=== PATIENT | male | born 1945 | race Caucasian/White ===

== ENCOUNTER 2023-10-02 08:44 | Day surgery (SDC) | payer MEDICARE, SELFPAY ==
--- NOTE | 2023-10-02 | PATH_ITS ---
[facility] Accession Number: [id number] No. of containers..04 Tissue . 01 Material submitted: . PART A: small bowel - SMALL BOWEL PART B: gastrointestinal site - GASTRIC PART C: ileum - ILEUM PART D: colon - RANDOM COLON . 01 Diagnosis: Part A: SMALL BOWEL: Small bowel mucosa with no diagnostic alterations. No active inflammation and no evidence of celiac disease. . Part B: GASTRIC: Gastric mucosa with mild chronic inflammation. No Helicobacter organisms identified. No intestinal metaplasia, dysplasia, or malignancy identified. . Part C: ILEUM: Ileal mucosa with no diagnostic alterations. No active inflammation, granulomas, or dysplasia identified. . Part D: RANDOM COLON: Colonic mucosa with no diagnostic alterations. No active inflammation, granulomas, dysplasia, or malignancy identified. No evidence of colitis. [facility] 10/06/2023 1318 Local . 01 Electronically signed: . Kristian Garcia MD, Pathologist NPI- [id number] . 01 Gross description: . Part A: SMALL BOWEL: Received in formalin are 3 fragment(s) of moran, soft tissue measuring 0.1 x 0.1 x 0.1 cm to 0.3 x 0.2 x 0.2 cm submitted entirely in 1 cassette(s) . Part B: GASTRIC: Received in formalin is 1 fragment(s) of moran, soft tissue measuring 0.4 x 0.2 x 0.2 cm submitted entirely in 1 cassette(s) . Part C: ILEUM: Received in formalin is 1 fragment(s) of moran, soft tissue measuring 0.3 x 0.3 x 0.2 cm submitted entirely in 1 cassette(s) . Part D: RANDOM COLON: Received in formalin are multiple fragment(s) of moran, soft tissue measuring 0.1 x 0.1 x 0.1 cm to 0.3 x 0.2 x 0.2 cm submitted entirely in 1 cassette(s) /TRACY 10/06/2023 1318 Local . 01 Microscopic: . Part B: GASTRIC: An immunohistochemical stain was performed to evaluate for Helicobacter organisms and is negative. The control stains appropriately. * This test was developed and its performance characteristics determined by [facility]. It has not been cleared or approved by the U.S. Food and Drug Administration. The FDA has determined that such clearance or approval is not necessary. This test is used for clinical purposes. It should not be regarded as investigational or for research. . 01 Pathologist provided ICD-10: K29.50, R19.7 . 01 CPT . 134914, 799553, 286649, 014519, N31687 Specimen Comment: A courtesy copy of this report has been sent to [phone] Performed at: 01 [facility] [address] [place] [address] [address] [facility], [place], [place] [id number] MD Kristian Garcia MD Phone: [phone]
[2023-10-02 09:21] VITALS: BP 151/85; PULSE 62; RESP 18; TEMP 36.8; O2SAT 98
[2023-10-02] MEDS: LACTATED RINGERS 1,000 ML 42 ML IV (09:31)
--- NOTE | 2023-10-02 09:39 | PM.PREOP ---
Pre-operative Note Interval Note History & Physical reviewed/Exam performed by Physician: Yes Changes to H&P: No ASA Class (for procedural sedation): III
--- NOTE | 2023-10-02 09:39 | PM.OP.EC ---
Operative Date/Time/Diagnoses Date of procedure: 10/02/23 Pre-op diagnosis: See indication and findings Procedure & Clinicians Study performed: EGD and colonoscopy Indications: Persistent and recurrent diarrhea and history of duodenal stricture Surgeon: Chandni Valle Procedure Notes Procedure in detail: After informed consent was obtained the patient was placed in left lateral decubitus position. The video upper scope was placed into the oropharynx and with the patient's help swallowed into the esophagus. The esophagus stomach and duodenum were carefully examined. I was unable to make it through the pylorus initially and therefore the pediatric colonoscope was substituted and the procedure was completed. On withdrawal, retroflexed view the GE junction was performed. The scope was removed. The patient tolerated procedure well. Colonoscope was then substituted and the patient turned. This introduced in the rectum slowly advanced cecum. Preparation was good. On slow withdrawal mucosa was carefully examined. The scope was removed. The patient tolerated procedure well. Blood loss none Complications none Sedation mac Findings EGD 1. Normal esophagus 2. Stomach with large amount of retained bilious fluid, nothing solid. Approximately 180-200 cc were suctioned. 3. Moderate to severe gastritis with a few hematin flecks present. Biopsies taken 4. Wide open pylorus and subsequent surgical findings of Billroth-I anastomosis. Scope was passed at least 15 cm past the pylorus no recurrent stricture seen. Biopsies taken Colonoscopy 1. Terminal ileum evaluated along within normal IC valve. Completely normal mucosa. Biopsies taken 2. Otherwise normal colonoscopy the with a large amount of retained fluid. Biopsies taken Will be in touch with Jeromy regarding all of his biopsies. We may need to consider another small-bowel study given the large amount of gastric retention that he had.
[2023-10-02 10:49] VITALS: BP 109/53; PULSE 55; RESP 12; O2SAT 92
[2023-10-02 10:54] VITALS: BP 106/56; PULSE 48; RESP 12; O2SAT 94
[2023-10-02 10:59] VITALS: BP 119/66; PULSE 47; RESP 14; O2SAT 95
[2023-10-02 11:05] VITALS: BP 134/72; PULSE 46; RESP 13; O2SAT 96
[2023-10-02 11:20] VITALS: BP 124/73; PULSE 56; RESP 12; O2SAT 100
== END 2023-10-02 11:35 | disposition home or self-care (01) ==
PROVIDERS: PCP Internal Medicine; Referring Provider Internal Medicine Gastroenterology; Visit Provider Internal Medicine Gastroenterology
PROC: 0DJ08ZZ Inspection of Upper Intestinal Tract, Via Natural or Artificial Opening Endoscopic (ICD-10-PCS; CPT 43235; principal; 2023-10-02 10:00)
PROC: 0DJD8ZZ Inspection of Lower Intestinal Tract, Via Natural or Artificial Opening Endoscopic (ICD-10-PCS; CPT 45378; 2023-10-02 10:00)
DX: K29.50 Unspecified chronic gastritis without bleeding (principal); R19.7 Diarrhea, unspecified; Z87.19 Personal history of other diseases of the digestive system
CPT/HCPCS: 45380; 43239; J2704

== ENCOUNTER → 2023-12-20 12:24 | Outpatient (CLI) | payer MEDICARE, SELFPAY | LOC: PHYS 12:25 | PROVIDERS: Family Provider Internal Medicine; PCP Internal Medicine; Referring Provider Internal Medicine; Visit Provider Internal Medicine | DX: G56.01 Carpal tunnel syndrome, right upper limb (principal) | CPT/HCPCS: 95885; 95886; 95912 ==